=== PATIENT | female | born 1970 | race Caucasian/White ===

== ENCOUNTER 2020-07-16 20:47 | Emergency (ER) | payer OTHER ==
[2020-07-16] MEDS ORDERED: VISTARIL25 MG PO (21:47)
[2020-07-16] MEDS ORDERED: DIOVAN HCT 80-1 EACH PO (21:47)
[2020-07-16 22:12] LABS: HEMOGLOBIN 14.8 gm/dl (12.3-15.3); RED BLOOD COUNT 4.74 M/UL (4.00-5.10); WHITE BLOOD COUNT 8.1 K/UL (4.5-11.0)
[2020-07-16 22:28] LABS: BUN/CREATININE RATIO 15 (0-10)
== END 2020-07-16 22:55 | disposition home or self-care (01) ==
LOC: ER1 20:47
PROVIDERS: Physician Assistant
DX: R21 Rash and other nonspecific skin eruption (principal); I10 Essential (primary) hypertension; F17.210 Nicotine dependence, cigarettes, uncomplicated; Z88.0 Allergy status to penicillin; Z88.2 Allergy status to sulfonamides; Z88.8 Allergy status to other drugs, medicaments and biological substances
CPT/HCPCS: 80053; 85025; 85610; 85652; 85730; 86140; 99283